=== PATIENT | female | born 1960 | race Caucasian/White ===

== ENCOUNTER 2020-12-31 22:33 | Inpatient (IN) | payer MEDICARE, MEDICAID ==
[~2020-12-31] VITALS: Ht 149.9 cm; Wt 47.3 kg
[2021-01-01 00:04] LABS: BASOPHILS % 0.3 % (0.0-2.0); EOSINOPHILS % 1.1 % (0.0-5.0); HEMATOCRIT. 39.9 % (36.0-48.0); HEMOGLOBIN. 13.6 g/dL (12.0-16.0); LYMPHOCYTES % 16.9 % (20.0-50.0); MEAN CORPUSCULAR HEMOGLOBIN 30.5 pg (28.0-32.0); MEAN CORPUSCULAR VOLUME 89.4 fL (81.0-99.0); MONOCYTES % 4.9 % (2.0-8.0); NEUTROPHILS % 76.8 % (40.0-76.0); PLATELET 86 x1000/uL (130-400); RED BLOOD CELL COUNT 4.47 mill/uL (4.2-5.4); RED CELL DISTRIBUTION WIDTH 13.9 % (11.6-14.6)
[2021-01-01 00:11] LABS: CHLORIDE 104 mEq/L (98-107)
[2021-01-01 00:12] LABS: INR 1.1; PROTHROMBIN TIME 11.5 sec (9.6-11.0)
[2021-01-01] MEDS ORDERED: MORPHINE SULFATE 4 MG/ML CPJ (NOT FOR IM USE) IV ONE (01:00)
[2021-01-01] MEDS ORDERED: HYDRALAZINE 20MG/ML VIAL IV ONE (01:00)
[2021-01-01] MEDS ORDERED: ACETAMINOPHEN 325MG TABLET PO ONE (01:30)
[2021-01-01 04:00] VITALS: BP_SYST 120; BP_SYST 141; BP_DIAS 55; BP_DIAS 62
[2021-01-01] MEDS ORDERED: PANT40TA51 PO (05:50)
[2021-01-01] MEDS ORDERED: PRED1TAB PO (05:50)
[2021-01-01] MEDS ORDERED: CLON0.2T PO (05:50)
[2021-01-01] MEDS ORDERED: MULT-1116 MT (05:50)
[2021-01-01] MEDS ORDERED: ONDANSETRON HCL 4MG/2ML INJ IV PRN (07:30)
[2021-01-01] MEDS ORDERED: ACETAMINOPHEN 325MG TABLET PO PRN (07:30)
[2021-01-01] MEDS ORDERED: MAGNESIUM/ALUMINUM HYDROXIDE/SIMETHICONE 30ML UDC PO PRN (07:30)
[2021-01-01] MEDS ORDERED: DIPHENHYDRAMINE 50MG/ML VIAL IV PRN (07:30)
[2021-01-01] MEDS ORDERED: DOCUSATE SODIUM 100MG CAPSULE PO PRN (07:30)
[2021-01-01] MEDS ORDERED: GUAIFENESIN 200MG/10ML SUGAR FREE UDC PO PRN (07:30)
[2021-01-01] MEDS ORDERED: CLONIDINE 0.1MG TABLET PO PRN (07:30)
[2021-01-01] MEDS ORDERED: IPRATROPIUM/ALBUTEROL 0.5-3(2.5)MG/3ML NEB HHN PRN (07:30)
[2021-01-01] MEDS ORDERED: HYDROCODONE/ACETAMINOPHEN 5/325MG TABLET PO PRN (07:30)
[2021-01-01] MEDS ORDERED: HYDRALAZINE 20MG/ML VIAL IV PRN (07:30)
[2021-01-01] MEDS ORDERED: LORAZEPAM 2MG/ML CPJ IV PRN (07:30)
[2021-01-01] MEDS ORDERED: MORPHINE SULFATE 2 MG/ML CPJ (NOT FOR IM USE) IV PRN (07:30)
[2021-01-01 08:00] VITALS: BP 135/53
[2021-01-01] MEDS ORDERED: TACR0.5C17 MT ×2 (09:00)
[2021-01-01] MEDS ORDERED: MYCO180T3 MT (09:02)
[2021-01-01 12:00] VITALS: BP 131/51
[2021-01-01] MEDS: MYCOPHENOLATE SODIUM 180 MG TABLET.DR PO SCH ×2 (13:47→20:25)
[2021-01-01] MEDS: SODIUM CHLORIDE 0.9% INJ 3ML FLUSH IVF SCH ×2 (13:48→22:11)
[2021-01-01] MEDS: TACROLIMUS 0.5 MG CAPSULE PO SCH (13:48)
[2021-01-01 16:00] VITALS: BP 128/74
[2021-01-01 16:37] LABS: CREATINE KINASE 41 IU/L (26-192)
[2021-01-01 16:38] LABS: CREATINE KINASE MB FRACTION < 1.0 ng/mL (0.5-3.6)
[2021-01-01 20:00] VITALS: BP 101/52
[2021-01-01] MEDS: PANTOPRAZOLE 40MG DR TABLET PO SCH (20:25)
[2021-01-01] MEDS: TACROLIMUS 1MG CAPSULE PO SCH (20:25)
[2021-01-01 22:00] VITALS: BP 126/58
[2021-01-01 23:23] LABS: CREATINE KINASE 40 IU/L (26-192)
[2021-01-01 23:24] LABS: CREATINE KINASE MB FRACTION 1.4 ng/mL (0.5-3.6)
[2021-01-02] VITALS (22 sets, daily range): BP systolic 91–164; BP diastolic 50–81
[2021-01-02] MEDS: SODIUM CHLORIDE 0.9% INJ 3ML FLUSH IVF SCH ×3 (06:16→20:32)
[2021-01-02 06:17] LABS: BASOPHILS % 0.7 % (0.0-2.0); EOSINOPHILS % 1.6 % (0.0-5.0); HEMATOCRIT. 39.9 % (36.0-48.0); HEMOGLOBIN. 13.2 g/dL (12.0-16.0); LYMPHOCYTES % 19.5 % (20.0-50.0); MEAN CORPUSCULAR HEMOGLOBIN 30.1 pg (28.0-32.0); MEAN CORPUSCULAR VOLUME 91.2 fL (81.0-99.0); MEAN PLATELET VOLUME 11.5 fl (7.4-10.4); MONOCYTES % 6.3 % (2.0-8.0); NEUTROPHILS % 71.9 % (40.0-76.0); PLATELET 88 x1000/uL (130-400); RED BLOOD CELL COUNT 4.38 mill/uL (4.2-5.4); RED CELL DISTRIBUTION WIDTH 14.2 % (11.6-14.6)
[2021-01-02 06:27] LABS: CHLORIDE 112 mEq/L (98-107)
[2021-01-02 06:41] LABS: CREATINE KINASE 35 IU/L (26-192)
[2021-01-02 06:43] LABS: CREATINE KINASE MB FRACTION 1.2 ng/mL (0.5-3.6)
[2021-01-02] MEDS: MYCOPHENOLATE SODIUM 180 MG TABLET.DR PO SCH ×2 (08:43→20:31)
[2021-01-02] MEDS: TACROLIMUS 0.5 MG CAPSULE PO SCH ×2 (08:43→20:31)
[2021-01-02] MEDS ORDERED: PREDNISONE 1MG TABLET PO SCH (09:00)
[2021-01-02] MEDS ORDERED: HEPARIN SODIUM 1,000 UNIT/1ML VIAL IV ONE (09:45)
[2021-01-02] MEDS ORDERED: POLYMYXIN B SULFATE 500000 UNITS/VIAL ONE (09:46)
[2021-01-02] MEDS ORDERED: LIDOCAINE HCL 1% 20ML VIAL (Pyxis) INJ ONE (09:46)
[2021-01-02] MEDS ORDERED: BACITRACIN 15GM TUBE TOP ONE (09:46)
[2021-01-02] MEDS ORDERED: BUPIVACAINE HCL/PF 0.5% (5MG/ML) 10ML ONE (09:46)
[2021-01-02] MEDS ORDERED: THROMBIN (BOVINE) 5000 UNITS/VIAL TOP ONE (09:47)
[2021-01-02] MEDS ORDERED: ONDANSETRON HCL 4MG/2ML INJ IV PRN (13:45)
[2021-01-02] MEDS ORDERED: HYDROMORPHONE HCL/PF 2MG/ML CPJ IV PRN (13:45)
[2021-01-02] MEDS ORDERED: MEPERIDINE HCL/PF 25MG/ML CPJ IV PRN (13:45)
[2021-01-02] MEDS ORDERED: LABETALOL 5MG/ML SYR 20 MG/4 ML SYRINGE IV PRN (13:45)
[2021-01-02] MEDS: PREDNISONE 1MG TABLET PO SCH (17:57)
[2021-01-02] MEDS: PANTOPRAZOLE 40MG DR TABLET PO SCH (20:32)
[2021-01-02] MEDS: TACROLIMUS 1MG CAPSULE PO SCH (20:32)
[2021-01-03] VITALS (8 sets, daily range): BP systolic 136–165; BP diastolic 56–95
[2021-01-03] MEDS: SODIUM CHLORIDE 0.9% INJ 3ML FLUSH IVF SCH (06:16)
[2021-01-03] MEDS: PREDNISONE 1MG TABLET PO SCH (09:09)
[2021-01-03] MEDS: MYCOPHENOLATE SODIUM 180 MG TABLET.DR PO SCH (09:09)
== END 2021-01-03 14:10 | disposition home or self-care (01) | DRG 252 ==
LOC: ER 22:33 → 5EST 01-01 01:59 → EDBEDREQSVC 01-01 02:04 → EDBEDREQ 01-01 02:04 → ENRESERV 01-01 02:22
PROVIDERS: ADMIT Internal Medicine; ATTEND Internal Medicine
PROC: 05WY0JZ Revision of Synthetic Substitute in Upper Vein, Open Approach (ICD-10-PCS; principal; 2021-01-02)
DX: T82.838A Hemorrhage due to vascular prosthetic devices, implants and grafts, initial encounter (principal); N18.6 End stage renal disease; I12.0 Hypertensive chronic kidney disease with stage 5 chronic kidney disease or end stage renal disease; Q61.3 Polycystic kidney, unspecified; Z94.0 Kidney transplant status; D69.6 Thrombocytopenia, unspecified; Z20.822 Contact with and (suspected) exposure to COVID-19; Y84.1 Kidney dialysis as the cause of abnormal reaction of the patient, or of later complication, without mention of misadventure at the time of the procedure; E21.3 Hyperparathyroidism, unspecified; I72.1 Aneurysm of artery of upper extremity; Y92.89 Other specified places as the place of occurrence of the external cause; Z99.2 Dependence on renal dialysis
CPT/HCPCS: 36415; 71045; 80053; 80061; 82550; 82553; 83036; 83880; 84439; 84443; 84484; 85025; 85379; 87426; 93005; 93306; 99291; C1757; C1768; J0360; J1644; J2270; J3490; J7507; J7512; J7517